=== PATIENT | female | born 1965 | race Caucasian/White ===

== ENCOUNTER 2019-01-03 10:47 | Emergency (ER) | payer BC ==
[2019-01-03 11:05] VITALS: BP 110/68
--- NOTE | 2019-01-03 11:20 | UC ---
Throat Pain/Nasal [place] HPI - HPI Summary HPI Summary: Pt present with c/o gradual onset of nasal congestion, malaise, sinus pressure and tenderness, X 2 weeks. - History of Current Complaint Chief Complaint: UCGeneralIllness Stated Complaint: SINUS CONCERN Time Seen by Provider: 01/03/19 10:50 Hx Obtained From: Patient Hx Last Menstrual Period: ablation ?: No Onset/Duration: Gradual Onset, Lasting Weeks - 2, Still Present Severity: Moderate Pain Intensity: 5 Cough: Nonproductive Associated Signs & Symptoms: Positive: Sinus Discomfort, Nasal Discharge Related History: Smoking - Epiglottits Risk Factors Epiglottis Risk Factors: Negative - Allergies/Home Medications Allergies/Adverse Reactions: Allergies Allergy/AdvReac Type Severity Reaction Status Date / Time No Known Allergies Allergy Verified 01/03/19 10:58 Home Medications: Home Medications Ibuprofen TAB* [Advil TAB*] 800 mg PO Q6H PRN 01/03/19 [History Confirmed ] Pseudoephedrine TAB* [Sudafed TAB*] 30 mg PO Q6H PRN 01/03/19 [History Confirmed 01/03/19] PMH/Surg Hx/FS Hx/Imm Hx Previously Healthy: Yes - Surgical History Surgical History: Yes Surgery Procedure, Year, and Place: uterine ablation. tubal. oral surgery - Family History Known Family History: Positive: Cardiac Disease - Social History Occupation: Employed Full-time Lives: With Family Alcohol Use: None Substance Use Type: None Smoking Status (MU): Heavy Every Day Tobacco Smoker Type: Cigarettes Amount Used/How Often: 1 PPD Have You Smoked in the Last Year: Yes - Immunization History Vaccination Up to Date: No Review of Systems All Other Systems Reviewed And Are Negative: Yes Constitutional: Positive: Chills, Fatigue Skin: Positive: Negative Eyes: Positive: Negative ENT: Positive: Sinus Congestion, Sinus Pain/Tenderness Respiratory: Positive: Cough Cardiovascular: Positive: Negative Gastrointestinal: Positive: Negative Genitourinary: Positive: Negative Motor: Positive: Negative Neurovascular: Positive: Negative Musculoskeletal: Positive: Myalgia Neurological: Positive: Headache Psychological: Positive: Negative Is Patient Immunocompromised?: No Physical Exam Triage Information Reviewed: Yes Appearance: Ill-Appearing Vital Signs: Initial Vital Signs Temp 98.9 F 01/03/19 10:59 Pulse 81 01/03/19 10:59 Resp 16 01/03/19 10:59 BP 110/68 01/03/19 10:59 Pulse Ox 99 01/03/19 10:59 Vital Signs Reviewed: Yes Eye Exam: Normal ENT Exam: Other ENT: Positive: Nasal congestion, TM bulging - bilateral, Sinus tenderness Dental Exam: Normal Neck: Positive: Enlarged Nodes @ - cervical, submandibular Respiratory Exam: Normal Cardiovascular Exam: Normal Musculoskeletal Exam: Normal Neurological Exam: Normal Psychological Exam: Normal Skin Exam: Normal Throat Pain/Nasal Course/Dx - Differential Dx/Diagnosis Differential Diagnosis/HQI/PQRI: Influenza, Sinusitis, URI Provider Diagnosis: Sinusitis Discharge - Sign-Out/Discharge Documenting (check all that apply): Patient Departure All imaging exams completed and their final reports reviewed: No Studies - Discharge Plan Condition: Stable Disposition: HOME Prescriptions: Amoxicillin PO (*) [Amoxicillin 875 MG (*)] 875 mg PO Q12H #20 tab Patient Education Materials: How to Stop Smoking (ED), Sinusitis (ED) Referrals: [facility] [Outside] - If Needed No Primary Care Phys,NOPCP [Primary Care Provider] - - Billing Disposition and Condition Condition: STABLE Disposition: Home
== END 2019-01-03 11:30 | disposition home or self-care (01) ==
LOC: UCCORT 10:47
DX: J32.9 Chronic sinusitis, unspecified (principal); F17.210 Nicotine dependence, cigarettes, uncomplicated
CPT/HCPCS: 99202; G0463

== ENCOUNTER 2019-08-04 09:54 | Emergency (ER) | payer BC ==
[2019-08-04 10:44] VITALS: BP 111/72
--- NOTE | 2019-08-04 10:56 | UC ---
Skin Complaint HPI - HPI Summary HPI Summary: Pt presents with c/o sudden onset of upper lip erythema, swelling, tenderness, and blister that "oozed clear fluid that crusted over" on left side upper lip. Pt had dental work on Tuesday afternoon at ~ 1530. Swelling and erythema began " a few hours later" . Pt has been applying corticoid steroid ointment with improved erythema and swelling Pt also c/o sores in mouth and difficulty eating due to pain - History of Current Complaint Chief Complaint: UCSkin Time Seen by Provider: 08/04/19 10:37 Stated Complaint: SKIN CONCERN Hx Obtained From: Patient Hx Last Menstrual Period: ablation ?: No Onset/Duration: Sudden Onset, Still Present Skin Exposure Onset/Duration: Days Ago Timing: Constant Onset Severity: Moderate Current Severity: Mild Pain Intensity: 10 Location: Discrete, Face Character: Swelling, Pain, Redness, Painful Aggravating Factor(s): Touch Alleviating Factor(s): Other - RX for corticoid steroid ointment Associated Signs & Symptoms: Positive: Tenderness Related History: Possible Reaction to: Latex, Possible Reaction to: Environmental Exposure - Allergy/Home Medications Allergies/Adverse Reactions: Allergies Allergy/AdvReac Type Severity Reaction Status Date / Time No Known Allergies Allergy Verified 08/04/19 10:35 PMH/Surg Hx/FS Hx/Imm Hx Previously Healthy: Yes - Surgical History Surgical History: Yes Surgery Procedure, Year, and Place: uterine ablation. tubal. oral surgery - Family History Known Family History: Positive: Cardiac Disease - Social History Occupation: Employed Full-time Lives: With Family Alcohol Use: None Substance Use Type: None Smoking Status (MU): Heavy Every Day Tobacco Smoker Type: Cigarettes Amount Used/How Often: 1 PPD Have You Smoked in the Last Year: Yes - Immunization History Vaccination Up to Date: No Review of Systems All Other Systems Reviewed And Are Negative: Yes Constitutional: Positive: Negative Skin: Positive: Other - swelling, erythema, ulcerations in mouth Eyes: Positive: Negative ENT: Positive: Negative Respiratory: Positive: Negative Cardiovascular: Positive: Negative Gastrointestinal: Positive: Negative Genitourinary: Positive: Negative Motor: Positive: Negative Neurovascular: Positive: Negative Musculoskeletal: Positive: Negative Neurological: Positive: Negative Psychological: Positive: Negative Is Patient Immunocompromised?: No Physical Exam Triage Information Reviewed: Yes Appearance: Pain Distress Vital Signs: Initial Vital Signs Temp 99 F 08/04/19 10:37 Pulse 77 08/04/19 10:37 Resp 16 08/04/19 10:37 BP 111/72 08/04/19 10:37 Pulse Ox 98 08/04/19 10:37 Vital Signs Reviewed: Yes Eye Exam: Normal ENT: Positive: Other - upper lip swelling, erythema with erythematous area left side upper lip and cheek. Dental: Positive: Other: - ulcerations right upper upper along upper line of upper teeth. Neck exam: Normal Respiratory: Positive: No respiratory distress Cardiovascular Exam: Normal Musculoskeletal Exam: Normal Neurological Exam: Normal Psychological Exam: Normal Skin Exam: Other - swelling, erythema, upper lip. left side upper lip and cheek Course/Dx - Differential Diagnoses - Skin Complaint Differential Diagnoses: Angioedema, Cellulitis, Impetigo - Diagnoses Provider Diagnosis: Contact dermatitis, Skin infection, Mouth ulcers Discharge ED - Sign-Out/Discharge Documenting (check all that apply): Patient Departure All imaging exams completed and their final reports reviewed: No Studies - Discharge Plan Condition: Stable Disposition: HOME Prescriptions: Cetirizine* [ZyrTEC 10 MG TAB*] 10 mg PO DAILY #10 tab Lidocaine 2% VISCOUS* [Xylocaine 2% Viscous*] 15 ml SWISH SPIT Q4H PRN #1 btl PRN Reason: Pain - Mild Mupirocin 2% OINT* [Bactroban 2 % Oint*] 1 applic TOPICAL Q12H 7 Days #1 tube predniSONE 10 mg TAB [Deltasone 10 MG TAB*] 30 mg PO DAILY #12 tab Patient Education Materials: Contact Dermatitis (ED) Referrals: [facility] [Outside] - If Needed No Primary Care Phys,NOPCP [Primary Care Provider] - Additional Instructions: Please follow up with your dental care provider as soon as possible. - Billing Disposition and Condition Condition: STABLE Disposition: Home
== END 2019-08-04 11:11 | disposition home or self-care (01) ==
LOC: UCCORT 09:54
DX: K12.1 Other forms of stomatitis (principal); L25.9 Unspecified contact dermatitis, unspecified cause; L08.9 Local infection of the skin and subcutaneous tissue, unspecified
CPT/HCPCS: 99212; G0463

== ENCOUNTER 2019-09-02 16:54 | Emergency (ER) | payer BC ==
[2019-09-02] MEDS ORDERED: Ibuprofen TAB* 600 MG PO ONE (17:08)
[2019-09-02 17:17] VITALS: BP 111/69
--- NOTE | 2019-09-02 17:30 | UC ---
FLU HPI - HPI Summary HPI Summary: 54 year old female with no PMH, no medications, 1 1/2 PPD smoker since 24 presents with fever, chills, cough- productive, labored breathing, no lightheadedness, dizziness. + fatigue. Sore throat, no difficulty swallowing. + nausea, no GI symptoms. - History of Current Complaint Chief Complaint: UCRespiratory Stated Complaint: BODY ACHES, COUGH Time Seen by Provider: 09/02/19 17:10 Hx Obtained From: Patient Hx Last Menstrual Period: uterine ablation age 35 ?: No Severity Currently: Moderate Severity Initially: Moderate Pain Intensity: 5 Pain Scale Used: 0-10 Numeric - Allergy/Home Medications Allergies/Adverse Reactions: Allergies Allergy/AdvReac Type Severity Reaction Status Date / Time No Known Allergies Allergy Verified 09/02/19 17:05 Home Medications: Home Medications Ibuprofen TAB* [Advil TAB*] 800 mg PO Q6H PRN 01/03/19 [History Confirmed ] Albuterol HFA INHALER* [Ventolin HFA Inhaler*] 1 - 2 puff INH Q4H PRN #1 mdi [Rx] Benzonatate CAP* [Tessalon 100 MG CAP*] 100 mg PO TID PRN #30 cap 09/02/19 [Rx] DOXYcycline CAP(*) [DOXYcycline 100MG CAP(*)] 100 mg PO BID #13 cap 09/02/19 [Rx ] Nicotine PATCH 21 MG/24 HR* 21 mg TRANSDERM DAILY 09/02/19 [History Confirmed ] Phenylephrine/Dm/Acetaminop/GG [Mucinex Fast-Max Cold-Flu Cap] 1 each PO PRN [History] predniSONE [Prednisone 20 MG TAB] 1 tab PO .SEE TAP #18 tablet 09/02/19 [Rx] PMH/Surg Hx/FS Hx/Imm Hx Previously Healthy: Yes Respiratory History: COPD - undiagnosed. - Surgical History Surgical History: Yes Surgery Procedure, Year, and Place: uterine ablation. tubal ligation. oral surgery. LEEP PROCEDURE - Family History Known Family History: Positive: Cardiac Disease, Non-Contributory - Social History Occupation: Employed Full-time - [employer] Alcohol Use: None Substance Use Type: None Smoking Status (MU): Heavy Every Day Tobacco Smoker Type: Cigarettes Amount Used/How Often: 1 PPD Have You Smoked in the Last Year: Yes Household Exposure Type: Cigarettes - Immunization History Vaccination Up to Date: No Review of Systems All Other Systems Reviewed And Are Negative: Yes Constitutional: Positive: Negative Skin: Positive: Negative ENT: Positive: Sore Throat, Sinus Congestion, Sinus Pain/Tenderness Respiratory: Positive: Shortness Of Breath, Cough Cardiovascular: Positive: Negative Gastrointestinal: Positive: Negative Motor: Positive: Negative Neurovascular: Positive: Negative Musculoskeletal: Positive: Arthralgia, Myalgia Neurological/Mental Status: Positive: Negative Psychological: Positive: Negative Is Patient Immunocompromised?: No Physical Exam Triage Information Reviewed: Yes Appearance: No Pain Distress, Well-Nourished, Ill-Appearing - moderate Vital Signs: Initial Vital Signs Temp 102.7 F 09/02/19 17:08 Pulse 92 09/02/19 17:08 Resp 28 09/02/19 17:08 BP 111/69 09/02/19 17:08 Pulse Ox 95 09/02/19 17:08 Vital Signs Reviewed: Yes Eyes: Positive: Conjunctiva Clear ENT: Positive: Pharynx normal, Nasal congestion, TMs normal, Sinus tenderness. Negative: Pharyngeal erythema, TM bulging, TM dull, TM red, Tonsillar swelling, Tonsillar exudate, Uvula midline Neck: Positive: Supple, No Lymphadenopathy, Tenderness @ - anterior cervical right Respiratory: Positive: Chest non-tender, No respiratory distress, No accessory muscle use, Wheezing - b/l lower lobes. Negative: Respiratory distress, Decreased breath sounds, Crackles, Rhonchi, Stridor, Expiration Cardiovascular: Positive: No Murmur, Tachycardia - mild Musculoskeletal Exam: Normal Neurological Exam: Normal Psychological Exam: Normal Skin Exam: Normal Flu Course/Dx - Course Course Of Treatment: Rapid flu positive for A. Influenza A positive, possible PNA - Over the counter medications as needed for symptoms - Albuterol inhaler as needed for shortness of breath, cough - Prednisone to help decrease wheezing/ improve breathing. - Tesalon perles to help with cough - Increase fluid intake to prevent dehydration, dry mucous membranes - Work note given - Differential Dx/Diagnosis Differential Diagnosis/HQI/PQRI: Influenza Provider Diagnosis: Influenza A Discharge ED - Sign-Out/Discharge Documenting (check all that apply): Patient Departure All imaging exams completed and their final reports reviewed: Yes - Discharge Plan Condition: Good Disposition: HOME Prescriptions: Albuterol HFA INHALER* [Ventolin HFA Inhaler*] 1 - 2 puff INH Q4H PRN #1 mdi PRN Reason: shortness of breath Benzonatate CAP* [Tessalon 100 MG CAP*] 100 mg PO TID PRN #30 cap PRN Reason: Cough DOXYcycline CAP(*) [DOXYcycline 100MG CAP(*)] 100 mg PO BID #13 cap predniSONE [Prednisone 20 MG TAB] 1 tab PO .SEE TAP #18 tablet Patient Education Materials: Influenza (ED) Forms: *Work Release Referrals: No Primary Care Phys,NOPCP [Primary Care Provider] - [facility] [Outside] Additional Instructions: Influenza A positive - Over the counter medications as needed for symptoms - Albuterol inhaler as needed for shortness of breath, cough - Prednisone to help decrease wheezing/ improve breathing. - Tesalon perles to help with cough - Increase fluid intake to prevent dehydration, dry mucous membranes - Work note given - Billing Disposition and Condition Condition: GOOD Disposition: Home
[2019-09-02 17:35] LABS: Influenza A Molecular POSITIVE (Negative)
[2019-09-02] MEDS ORDERED: Albuterol 2.5 MG/3 ML NEB.SOL* (0.083%) INH ONE (17:39)
[2019-09-02] MEDS ORDERED: Albuterol HFA INHALER* 8 gm MDI INH ONE (18:06)
[2019-09-02] MEDS ORDERED: DOXYcycline CAP(*) 100 MG PO ONE (18:07)
== END 2019-09-02 18:27 | disposition home or self-care (01) ==
LOC: UCCORT 16:54
DX: J10.1 Influenza due to other identified influenza virus with other respiratory manifestations (principal); F17.210 Nicotine dependence, cigarettes, uncomplicated
CPT/HCPCS: 71046; 99212; A9270-GY; G0463; J7512